=== PATIENT | female | born 1995 | race Caucasian/White ===

== ENCOUNTER 2017-04-10 17:54 | Emergency (ER) | payer MEDICAID ==
[~2017-04-10] VITALS: Ht 162.6 cm; Wt 68.5 kg
[2017-04-10 20:21] LABS: BASOPHIL % 0.5 % (0-2); PLATELET COUNT 374 x10^3mcL (130-400)
[2017-04-10 20:22] LABS: CALCIUM 9.3 mg/dL (8.5-10.1); CARBON DIOXIDE 30.9 mmol/L (21-32); CHLORIDE SERUM 105 mmol/L (98-107); CREATININE SERUM 0.8 mg/dL (0.6-1.0); GFR1 > 60 mL/min; GLUCOSE SERUM 78 mg/dL (74-106); SODIUM SERUM 138 mmol/L (136-145)
[2017-04-10 20:27] LABS: ALBUMIN 4.1 g/dL (3.4-5.0); ALKALINE PHOSPHATASE 43 U/L (46-116); ALT/SGPT 55 U/L (14-59); AST/SGOT 50 U/L (15-37); BILIRUBIN TOTAL 0.3 mg/dL (0.20-1.00); LIPASE 168 IU/L (73-393); TOTAL PROTEIN, SERUM 8.1 g/dL (6.4-8.2)
[2017-04-10 22:12] VITALS: BP 111/71
== END 2017-04-10 22:12 | disposition home or self-care (01) ==
LOC: ED 17:54
PROVIDERS: Emergency Medicine
DX: R10.31 Right lower quadrant pain (principal); R10.32 Left lower quadrant pain; J45.909 Unspecified asthma, uncomplicated
CPT/HCPCS: 36415

== ENCOUNTER 2017-10-30 20:52 | Emergency (ER) | payer MEDICAID ==
[~2017-10-30] VITALS: Ht 165.1 cm; Wt 69.6 kg
[2017-10-30 21:12] VITALS: Ht 165.1 cm; Wt 69.6 kg
[2017-10-31 02:14] VITALS: BP 113/68
== END 2017-10-31 02:14 | disposition home or self-care (01) ==
LOC: ED 20:52
DX: S16.1XXA Strain of muscle, fascia and tendon at neck level, initial encounter (principal); S20.212A Contusion of left front wall of thorax, initial encounter; R10.32 Left lower quadrant pain; R10.12 Left upper quadrant pain; M54.5 Low back pain; V43.52XA Car driver injured in collision with other type car in traffic accident, initial encounter; Y93.01 Activity, walking, marching and hiking; Y92.488 Other paved roadways as the place of occurrence of the external cause; Y99.8 Other external cause status
CPT/HCPCS: J1885